=== PATIENT | female | born 1955 | race Caucasian/White ===

== ENCOUNTER 2021-09-22 14:30 | Emergency (ER) | payer OTHER ==
[2021-09-22 15:38] VITALS: TEMP 98.3; BMI 30.8
[2021-09-22] MEDS ORDERED: ACETAMINOPHEN 500 MG TABLET (FP) PO ONE (16:01)
[2021-09-22] MEDS ORDERED: ACETAMINOPHEN 325 MG TABLET (FP) ONE (16:16)
[2021-09-22 16:47] LABS: BASO % 0.6 % (0-2.0); EOS % 1.2 % (0-4.5); HEMATOCRIT 38.3 % (32.4-45.2); HEMOGLOBIN 12.4 GM/dL (10.7-15.3); LYMPH % 26.6 % (8-40); MCH 26.3 pg (25.7-33.7); MCHC 32.3 g/dl (32.0-36.0); MEAN CELL VOLUME 81.5 fl (80-96); MEAN PLT VOLUME 7.6 fl (7.5-11.1); MONO % 10.9 % (3.8-10.2); NEUT % 60.7 % (42.8-82.8); PLATELET COUNT 326 10^3/uL (134-434); RDW 14.4 % (11.6-15.6); WHITE BLOOD COUNT 8.3 K/mm3 (4.0-10.0)
[2021-09-22 17:18] LABS: CALCIUM 9.5 mg/dL (8.5-10.1)
[2021-09-22 17:19] LABS: ALBUMIN 3.5 g/dl (3.4-5.0); BLOOD UREA NITROGEN 24.1 mg/dL (7-18)
[2021-09-22 17:22] LABS: CREATININE 0.7 mg/dL (0.55-1.3)
[2021-09-22 17:23] LABS: BILIRUBIN,TOTAL 0.5 mg/dL (0.2-1)
[2021-09-22 17:24] LABS: TOT PROT 7.4 g/dl (6.4-8.2)
[2021-09-22] MEDS ORDERED: SODIUM CHLORIDE 0.9% 500 ML INFUS.BAG IV ONE (17:44)
[2021-09-22 17:55] VITALS: BP 130/70; PULSE 86
[2021-09-22 18:02] LABS: URINE APPEARANCE CLEAR; URINE BILIRUBIN NEGATIVE (NEGATIVE); URINE COLOR YELLOW; URINE GLUCOSE (UA) NEGATIVE (NEGATIVE); URINE KETONE NEGATIVE (NEGATIVE); URINE LEUK ESTERASE NEGATIVE (NEGATIVE); URINE NITRITE NEGATIVE (NEGATIVE); URINE PROTEIN NEGATIVE (NEGATIVE); URINE UROBILINOGEN 0.2 mg/dL (0.2-1.0)
[2021-09-23 12:12] LABS: SARS-CoV-2 NAA Detected (Not Detected)
== END 2021-09-22 19:58 | disposition home or self-care (01) ==
LOC: JER 14:30
DX: S09.90XA Unspecified injury of head, initial encounter (principal); W01.0XXA Fall on same level from slipping, tripping and stumbling without subsequent striking against object, initial encounter
CPT/HCPCS: 36415; 70450-TC; 71046-TC-FY; 72125-TC; 73070-TC-RT-FY; 73564-TC-RT-FY; 80053; 81003; 84484; 85025; 87086; 93005; 93010; 99285-25; C9803-CS; U0003; U0005